=== PATIENT | female | born 1945 | race Caucasian/White ===

== ENCOUNTER 2022-02-25 08:49 | Day surgery (SDC) | payer MEDICARE, OTHER ==
[2022-02-25] VITALS (7 sets, daily range): BP systolic 143–156; BP diastolic 60–76
[2022-02-25] MEDS ORDERED: ATEN50TA8 PO (09:15)
[2022-02-25] MEDS ORDERED: LIDOcaine 1% 30ml preserv. free vial SQ STA (09:17)
== END 2022-02-25 10:50 | disposition home or self-care (01) ==
LOC: SSTAY O 08:49
PROVIDERS: ATTEND Family Medicine
DX: E04.1 Nontoxic single thyroid nodule (principal); I10 Essential (primary) hypertension; Z88.0 Allergy status to penicillin; Z79.899 Other long term (current) drug therapy; Z98.890 Other specified postprocedural states
CPT/HCPCS: 10005; 10006; J3490; 10007